=== PATIENT | male | born 1955 | race Two or more races ===

== ENCOUNTER 2017-10-11 13:42 | Emergency (ER) | payer MEDICAID ==
[~2017-10-11] VITALS: Ht 167.6 cm; Wt 81.6 kg
[~2017-10-11 13:42] MED LIST: BENA10TA9 PO; IBUP200C3 PO; SEVE800T PO
[2017-10-11] MEDS ORDERED: MAGNESIUM SULF IV ONE (13:43)
[2017-10-11] MEDS ORDERED: SODIUM BICARBONATE 8.4% INJ 50ML SYRINGE IV ONE (13:43)
[2017-10-11] MEDS ORDERED: DEXTROSE (50%) 50ML SYRG IV ONE (13:43)
[2017-10-11] MEDS ORDERED: EPINEPHrine HCL 1 MG/10 ML SYRG IV ONE (13:43)
[2017-10-11] MEDS ORDERED: CALCIUM CHLOR(10%) 100MG/ML 10ML SYRINGE IV ONE (13:43)
[2017-10-11] MEDS ORDERED: SODIUM BICARBONATE 8.4% INJ 50ML SYRINGE ONE ×2 (13:46→13:55)
[2017-10-11] MEDS ORDERED: InsuLIN REG 1unit/0.01ml Soln (100units/ml) ONE (13:48)
[2017-10-11 13:51] VITALS: BP 0/0
[2017-10-11] MEDS ORDERED: NOREPINEPHRINE 8 MG/250ML KIT 250 ML IV ONE (13:52)
== END 2017-10-11 18:29 | disposition expired ==
LOC: ER 13:42 → EDBD 13:42 → ER 18:29
DX: I46.9 Cardiac arrest, cause unspecified (principal); E11.22 Type 2 diabetes mellitus with diabetic chronic kidney disease; N18.6 End stage renal disease; Z99.2 Dependence on renal dialysis
CPT/HCPCS: 92950; 93005; 99291; J0171; J1815; J3475; J7042